=== PATIENT | female | born 1980 | race Caucasian/White ===

== ENCOUNTER → 2019-01-29 | Outpatient (CLI) | payer BC ==
[~2019-01-29] MED LIST: ACET325; ALBIPROI; ALBIPROI INH; AMOCLA500 PO; AMOX500 PO; CODGUAEL PO; DOXY100 PO; IBUP200 PO; IBUP800; MULVITA PO; PENVK500 PO; PRED20 PO; VENL75ER; [UNRECOGNIZED DRUG - OTHER]
== END | disposition home or self-care (01) ==
LOC: LAB EV 12:10 → LAB SHORT 12:10
DX: N39.0 Urinary tract infection, site not specified (principal)
CPT/HCPCS: 87077; 87086; 87186

== ENCOUNTER → 2020-02-27 | Outpatient (CLI) | payer BC ==
[2020-02-27 16:45] LABS: U Amphetamine Screen Not Detected; U Barbituate Screen Not Detected; U Benzodiazapine Screen Not Detected; U Buprenorphine Screen Not Detected; U Cannabinoids Screen Not Detected; U Cocaine Screen Not Detected; U Methadone Screen Not Detected; U Methamphetamine Screen Not Detected; U Opiates Screen Not Detected; U Oxycodone Screen Not Detected; U Phencyclidine Screen Not Detected; U Propoxyphene Screen Not Detected
== END | disposition home or self-care (01) ==
LOC: LAB SHORT 15:13 → LAB 15:13
PROVIDERS: Internal Medicine Critical Care Medicine
DX: R40.0 Somnolence (principal)

== ENCOUNTER → 2021-01-09 | Outpatient (CLI) | payer BC | END | disposition home or self-care (01) | LOC: LAB SHORT 13:42 → LAB 13:42 | DX: U07.1 COVID-19 (principal) | CPT/HCPCS: 85379 ==

== ENCOUNTER 2021-03-04 05:59 | Day surgery (SDC) | payer BC ==
[2021-03-02 16:51] LABS: BASOPHILS ABSOLUTE AUTO 0.07 K/mm3 (0.00-0.23); BASOPHILS PERCENT AUTO 1 % (0-2); EOSINOPHILS ABSOLUTE AUTO 0.11 K/mm3 (0.00-0.68); EOSINOPHILS PERCENT AUTO 1 % (0-6); Hematocrit 40.4 % (33.0-51.0); Hemoglobin 13.3 g/dL (11.5-16.0); IMMATURE GRAN ABSOLUTE AUTO 0.01 K/mm3 (0.00-0.10); IMMATURE GRAN PERCENT AUTO 0 % (0-1); LYMPHOCYTES ABSOLUTE AUTO 3.34 K/mm3 (0.84-5.20); LYMPHOCYTES PERCENT AUTO 38 % (21-46); MONOCYTES PERCENT AUTO 7 % (4-13); Mean Corpuscular HGB 29.5 pg (26.0-34.0); Mean Corpuscular HGB Conc 32.9 g/dL (31.5-36.5); Mean Corpuscular Volume 90 fL (80-100); Mean Platelet Volume 9.8 fL (9.1-12.4); NEUTROPHILS ABSOLUTE AUTO 4.63 K/mm3 (1.96-9.15); NEUTROPHILS PERCENT AUTO 53 % (41-73); Platelet Count 309 K/mm3 (150-400); RDW Coefficient Variation 14.6 % (11.7-14.2); RDW Standard Deviation 48.1 fL (35.1-46.3); Red Blood Cell Count 4.51 M/mm3 (3.80-5.20); White Blood Cell Count 8.76 K/mm3 (4.00-11.30)
[~2021-03-04] VITALS: Ht 172.7 cm; Wt 108.0 kg
[2021-03-04] MEDS ORDERED: MODA200 PO (06:22)
--- NOTE | 2021-03-04 07:34 | NUR ---
Ambulatory in Day Surgery ARRIVES WITH SO. MORRIS. History, Chart, Medications and Allergies reviewed before start of procedure. Lungs clear T/O to Auscultation. Patient confirms NPO status and agrees with scheduled surgery. Pre-Op teaching done. Pt verbalizes understanding. Patient States Post-Procedure ride home has been arranged. PT WAS COVID POSITIVE IN DEC, SO NO RETESTING DONE PER PROTOCOL.
--- NOTE | 2021-03-04 08:44 | NUR ---
OR NOTIFIED OF LATEX GY RELATED TO FENTANYL STOPPER PER PHARMACY
--- NOTE | 2021-03-04 12:38 | NUR ---
ARRIVAL TO UNIT PT ARRIVED AT APPROX 1205. PT A/OX4. VITALS TAKEN. LUND REMOVED AT THAT TIME. PT REPORTING MINIMAL PAIN. LAP SITES X4 OPEN TO AIR WITH DERMABOND, C/D/I. PT AMBULATED TO THE BATHROOM, UNABLE TO VOID, PASSED STOOL. SCANT AMOUNT OF BLOOD ON PERIPAD.
--- NOTE | 2021-03-04 18:26 | NUR ---
SHIFT SUMMARY SINCE ARRIVAL TO UNIT PT HAS VOIDED AND IS TOLERATING PO INTAKE. LAP SITES X4 C/D/I, TILTING HEAD BAND SAWYER WITH DERMABOND.IND IN THE ROOM, PAIN TOLERATED WITH PO PAIN MEDICATIONS. ANOTHER ANTIBIOTIC DUE THIS PM. WILL REPORT TO ONCOMING RN.
[2021-03-05 04:08] LABS: BASOPHILS ABSOLUTE AUTO 0.07 K/mm3 (0.00-0.23); BASOPHILS PERCENT AUTO 1 % (0-2); EOSINOPHILS ABSOLUTE AUTO 0.01 K/mm3 (0.00-0.68); EOSINOPHILS PERCENT AUTO 0 % (0-6); Hematocrit 36.4 % (33.0-51.0); Hemoglobin 11.9 g/dL (11.5-16.0); IMMATURE GRAN ABSOLUTE AUTO 0.05 K/mm3 (0.00-0.10); IMMATURE GRAN PERCENT AUTO 0 % (0-1); LYMPHOCYTES PERCENT AUTO 16 % (21-46); MONOCYTES ABSOLUTE AUTO 0.64 K/mm3 (0.16-1.47); MONOCYTES PERCENT AUTO 5 % (4-13); Mean Corpuscular HGB 29.5 pg (26.0-34.0); Mean Corpuscular HGB Conc 32.7 g/dL (31.5-36.5); Mean Corpuscular Volume 90 fL (80-100); Mean Platelet Volume 10.1 fL (9.1-12.4); NEUTROPHILS ABSOLUTE AUTO 9.46 K/mm3 (1.96-9.15); NEUTROPHILS PERCENT AUTO 77 % (41-73); Platelet Count 307 K/mm3 (150-400); RDW Coefficient Variation 14.7 % (11.7-14.2); RDW Standard Deviation 48.8 fL (35.1-46.3); Red Blood Cell Count 4.03 M/mm3 (3.80-5.20); White Blood Cell Count 12.23 K/mm3 (4.00-11.30)
--- NOTE | 2021-03-05 06:06 | NUR ---
PT IS A/OX3. ABLE TO MAKE HER NEEDS KNOWN. PLEASANT AND COOPERATIVE WITH STAFF AND HER CARE. ABD W/4 LAP SITES, ALL JANICE W/DERMABOND. PIV TO FRA AND LFA BOTH PATENT. TOLERATING REG DIET WELL. ATE TAKE OUT FOOD FOR SUPPER. PAIN MANAGED W/PRN MEDS PER EMAR. OVERNIGHT PT DEVELOPED RED/ITCHY RASH TO HER RT WRIST, LT FLANK AND NECK. RED AREA TO RT WRIST CIRCLED. NO HIVES. NO DIFFICULTY W/BREATING. VSS. PT DOES REPORT ALLERGY TO CEFTRIAXONE. PHARMACY CALLED. CREDIT PORTFOLIO ADVISOR UPDATED.
[2021-03-05] MEDS ORDERED: DOCU100 PO (11:30)
[2021-03-05] MEDS ORDERED: IBUP400 PO (11:31)
[2021-03-05] MEDS ORDERED: DULCOLAX400 MG/5 M PO (11:32)
[2021-03-05] MEDS ORDERED: Percocet 5-3251 EACH PO (11:33)
[2021-03-05] MEDS ORDERED: PROM25 PO (11:34)
[2021-03-05] MEDS ORDERED: SENNA LAXATIVE8.6 MG PO (11:35)
--- NOTE | 2021-03-05 12:09 | NUR ---
1202 discharged to home with , abd binder in place. pt colin po food and fluids without nausea. pt ambulating in room, voiding clear yellow urine. pt reports pain adequately controlled withpo meds. pt and her verbalize understanding of discharge instructions
== END 2021-03-05 12:01 | disposition home or self-care (01) ==
LOC: ORSCMMR 05:59 → ORD 07:30 → ORSCMMR 07:30 → ORD 09:30 → SURS 11:59 → ORSCMMR 03-05 12:01
PROVIDERS: Obstetrics & Gynecology
PROC: 0UT74ZZ Resection of Bilateral Fallopian Tubes, Percutaneous Endoscopic Approach (ICD-10-PCS; principal; 2021-03-04 07:30)
PROC: 0UT94ZZ Resection of Uterus, Percutaneous Endoscopic Approach (ICD-10-PCS; principal; 2021-03-04 07:30)
PROC: 8E0W4CZ Robotic Assisted Procedure of Trunk Region, Percutaneous Endoscopic Approach (ICD-10-PCS; principal; 2021-03-04 07:30)
DX: N92.0 Excessive and frequent menstruation with regular cycle (principal); D25.0 Submucous leiomyoma of uterus; D25.9 Leiomyoma of uterus, unspecified; N94.6 Dysmenorrhea, unspecified; N72 Inflammatory disease of cervix uteri; N83.8 Other noninflammatory disorders of ovary, fallopian tube and broad ligament; E66.01 Morbid (severe) obesity due to excess calories; Z68.36 Body mass index [BMI] 36.0-36.9, adult
CPT/HCPCS: 58573; S2900; 36415; 84702; 85025; 86850; 86900; 86901; 88307; A9270; J0295; J1100; J1885; J2405; J2550; J2704; J3010; J7120

== ENCOUNTER 2022-04-22 07:37 | Day surgery (SDC) | payer BC ==
[~2022-04-22 07:37] MED LIST changes: +DOCU100 PO; +DULCOLAX400 MG/5 M PO; +IBUP400 PO; +MODA200 PO; +PROM25 PO; +Percocet 5-3251 EACH PO; +SENNA LAXATIVE8.6 MG PO
== END 2022-05-05 22:52 | disposition home or self-care (01) ==
LOC: MOI MAM 07:37 → MOI US 05-11 09:00 → MOI MAM 05-11 09:00
DX: N64.89 Other specified disorders of breast (principal); R92.8 Other abnormal and inconclusive findings on diagnostic imaging of breast
CPT/HCPCS: 19083; 77065; 88305; A4648; G0279